=== PATIENT | female | born 1965 | race Caucasian/White ===

== ENCOUNTER 2021-12-05 18:26 | Emergency (ER) | payer OTHER ==
[~2021-12-05] VITALS: Ht 172.7 cm; Wt 104.3 kg
[2021-12-05] MEDS ORDERED: LIPITOR10 MG PO (19:06)
[2021-12-05] MEDS ORDERED: NORVASC5 MG PO (19:06)
[2021-12-05] MEDS ORDERED: CELEBREX200 MG PO (19:07)
[2021-12-05] MEDS ORDERED: BUSPIRONE HCL30 MG PO (19:07)
[2021-12-05] MEDS ORDERED: CYCLOBENZAPRINE10 MG PO (19:07)
[2021-12-05] MEDS ORDERED: ESCITALOPRAM OX20 MG PO (19:08)
[2021-12-05] MEDS ORDERED: JARDIANCE10 MG PO (19:08)
[2021-12-05] MEDS ORDERED: LEVBID0.375 MG PO (19:10)
[2021-12-05] MEDS ORDERED: MELATIN3 MG PO (19:10)
[2021-12-05] MEDS ORDERED: COZAAR100 MG PO (19:10)
[2021-12-05] MEDS ORDERED: METFORMIN HCL500 M2 PO (19:11)
[2021-12-05] MEDS ORDERED: TOPROL XL50 MG PO (19:11)
[2021-12-05] MEDS ORDERED: NOVOLIN 70100 UNIT/1 SUB-Q (19:12)
[2021-12-05] MEDS ORDERED: OMEPRAZOLE20 MG PO (19:12)
[2021-12-05] MEDS ORDERED: LYRICA100 MG PO (19:13)
[2021-12-05] MEDS ORDERED: SERTRALINE HCL100 MG PO (19:14)
[2021-12-05] MEDS ORDERED: VESICARE10 MG PO (19:15)
[2021-12-05] MEDS ORDERED: TRAZODONE HCL50 MG PO (19:16)
[2021-12-05] MEDS ORDERED: TOUJEO MAX300 UNIT/1 IV/IM (19:16)
[2021-12-05] MEDS ORDERED: PREDNISONE20 MG PO (20:43)
[2021-12-05] MEDS ORDERED: PEPCID20 MG PO (20:43)
[2021-12-05] MEDS ORDERED: EPIPEN 2-P0.3 MG/0.3 IM (20:43)
--- NOTE | 2021-12-06 00:23 | EKG ---
[facility] [address] [place], [place] [address] Signed Normal sinus rhythm Prolonged QT Abnormal ECG No previous ECGs available Confirmed by FELI GARZON MD ([id number] on 12/06/2021 12:23:39 AM Electronically Signed By: FELI GARZON MD 12/06/21 002 PATIENT NAME: JONATHAN LINCOLNMIKE [place] Electrocardiogram DATE OF : 69 PHYSICIAN: FELI GARZON MD REPORT #: [id number] REPORT IS CONFIDENTIAL AND NOT TO BE RELEASED WITHOUT AUTHORIZATION
== END 2021-12-05 23:51 | disposition home or self-care (01) ==
LOC: ED 18:26
DX: T78.2XXA Anaphylactic shock, unspecified, initial encounter (principal); R07.89 Other chest pain; R10.9 Unspecified abdominal pain; E11.9 Type 2 diabetes mellitus without complications; Z86.711 Personal history of pulmonary embolism; Z88.8 Allergy status to other drugs, medicaments and biological substances; Z91.048 Other nonmedicinal substance allergy status; Z79.899 Other long term (current) drug therapy; Z79.4 Long term (current) use of insulin; Z79.84 Long term (current) use of oral hypoglycemic drugs
CPT/HCPCS: 36415; 71045; 80053; 81001; 83690; 84484; 85025; 85060; 93005; 93010; 96374; 96375; 99285-25; J0171; J2930; J7121